=== PATIENT | female | born 1955 | race Caucasian/White ===

== ENCOUNTER → 2023-12-23 14:14 | Outpatient (REF) | payer OTHER, SELFPAY | LOC: RAD 14:14 | PROVIDERS: ATTENDING PHYSICIAN Internal Medicine | DX: R05.9 Cough, unspecified (principal) | CPT/HCPCS: 71046 ==

== ENCOUNTER 2025-03-26 05:51 | Inpatient (IN) | payer MEDICARE, OTHER, SELFPAY ==
[2025-03-26] VITALS (69 sets, daily range): BP systolic 63–149; BP diastolic 37–127; BMI 33.8; BMI 33.5
[2025-03-26 03:54] LABS: Hematocrit 46.7 % (37.0-47.0); Hemoglobin 15.4 g/dL (12.0-16.0); Mean Corp Hgb Conc. 33.0 g/dL (33.0-37.0); Mean Corpuscular Volume 90.9 fL (81.0-99.0); Nucleated Red Blood Cells % 0 %; Platelet Count 175 10^3/uL (130-400); Red Cell Dist. Width 13.4 % (11.5-14.5)
[2025-03-26 04:13] LABS: INR 1.03; PT 13.8 Sec (11.4-14.6)
--- NOTE | 2025-03-26 04:16 | ED.GENMED ---
History of Present Illness
General
Chief Complaint: Chest Pain
Source: patient
Time Seen by Provider: 03/26/25 03:39
History of Present Illness
History of Present Illness:
69-year-old female presents to the emergency room stating she is having a heart attack. Patient is complaining of chest pain. She been having pain intermittently since Friday but became severe and unrelenting during the sleeve tailor hours.
Patient is diaphoretic and appears acutely ill. Patient has a history of vascular disease and has a stent in her right carotid artery. Patient had a cardiac cath she states several years ago where she had coronary artery disease noted but did not
require stents evidently. Fortunately patient is a smoker up to 2 packs a day. She also admits to a history of chronic renal disease, hypertension, hyperlipidemia and diabetes.
Past History
Past History
ED Past Medical History: CAD, Fibromyalgia, GERD, HTN, Hypercholesterolemia, IDDM and Other (Kidney disease)
ED Past Surgical History: Cardiac and Other (carotid stent right)
Social History
Tobacco: Smoker
Alcohol: Occasional
Personal: Single
Living: alone
Phy Exam
Physical Exam
Physical Exam:
General: Awake, Alert, Oriented X3. Appears acutely ill
Vitals: Bradycardic
Head: Atraumatic
Eyes: Pupils equal, EOMI
Throat: Airway intact, no exudates
Neck: Trachea midline
Lungs: Clear and equal b/l
Heart: Bradycardic, regular rate, no murmurs
Abd: Soft, Nontender, No pulsatile mass
Neuro: Nonfocal
Skin: Pale, cool
Extremities: pulses equal b/l, no edema
Scores
Heart Score for Chest Pain Patients
STEMI patient?: Yes
Course
Orders/Labs/Results
Orders:
Orders
03/26/25 03:38
Electrocardiogram (*1) Urgent
Reason for Study: Other
Other Reason for Exam: Respiratory Distress
Cardiac Monitoring- Treatment ONCE
EKG- Treatment ONCE
IV Insert/Care/Rem.- Treatment PRN
CR Chest - 2 Views Urgent
Comment:
Reason For Exam: respiratory distress
O2 Therapy [RESP] Urgent
Titrate/Wean O2 to maintain O2 sat greater than (%): 93
Special Instructions: TO MAINTAIN CONTINUOUS O2 SATS >/= 93%
Pulse Ox/cont/shift [RESP] Urgent
Quantity: 1
Special Instructions: continuous pulse ox
03/26/25 03:47
Complete Blood Count/With Diff Urgent
Comprehensive Metabolic Panel Urgent
NT-proBNP Urgent
Troponin I Urgent
03/26/25 03:51
PT/INR [Prothrombin Time] Urgent
03/26/25 03:53
DOPamine 400 MG/D5W 250 ML [DOPamine 400 MG] 400 mg in 250 ml .ROUTE .STK-MED
03/26/25 04:02
EKG [Electrocardiogram (*1)] Urgent
Reason for Study: Chest Pain
03/26/25 04:03
EKG- Treatment ONCE
03/26/25 04:09
NORepinephrine 4 MG/250 ML [Levophed] 4 mg in 250 ml .ROUTE .STK-MED
03/26/25 04:18
Heparin 5,000 units .ROUTE .STK-MED ONE
Ticagrelor [Brilinta] 180 mg .ROUTE .STK-MED ONE
Abnormal Lab Results
03/26/25
03:47
Absolute Lymphs (auto) 3.9 H 10^3/uL
(1.2-3.4)
Absolute Monos (auto) 1.0 H 10^3/uL
(0.1-0.6)
Chloride 111 H mmol/L
(98-107)
BUN 50 H mg/dl
(7-17)
Creatinine 2.2 H mg/dL
(0.6-1.0)
03/26/25 03:47
03/26/25 03:47
Vital Signs
Initial and Last Documented VS:
Initial Vital Signs
Pulse Resp Pulse Ox
33 20 96
03/26/25 03:39 03/26/25 03:39 03/26/25 03:39
Last Documented Vital Signs
Temp Pulse Resp BP Pulse Ox
95.7 F L 39 20 87/46 93
03/26/25 03:59 03/26/25 04:16 03/26/25 04:16 03/26/25 04:10 03/26/25 04:17
MDM/Problems Addressed
Differential Diagnosis Includes:
Acute AL, heart block, unstable angina
MDM/Problems Addressed:
Patient presents with chest pain, diaphoresis, bradycardia. She looks acutely ill. EKG shows ST elevation in the inferior leads consistent with an inferior wall AL likely with posterior wall involvement. She is in a junctional rhythm. Patient
arrived with a reasonable blood pressure but her blood pressure did drop in the emergency room. Dopamine was started and titrated up to 10. A STEMI alert was called as soon as I reviewed the EKG. Dr. Benjamin Ford came rapidly to the emergency
room to evaluate the patient. Patient will be taken to the Supervisor Unloading for emergent intervention. Patient quite ill on her way to the Supervisor Unloading.
Chronic conditions affecting care: DM, HTN, PVD and Kidney disease
*Pulse Oximetry
SaO2: 92
Oxygen Mode of Delivery: Room air
Patient hypoxic: yes
*EKG
Interpreted by ED Provider?: Yes
Interpretation: abnormal
Heart Rate: 38
Rate: bradycardiac
Rhythm: junctional and PAC's
Ischemia: ST elevation (II, III aVF and some elevation noted in V5 and V6 as well. There are reciprocal changes in leads I, aVL and V2.)
*Coin Purse Assembler Interpretation
Rate: bradycardiac
Interpretation: abnormal
Heart Rate: 38
Rhythm: junctional
*Critical Care Note
Total Time (30-74mins, 75-104mins- exclusive of procedures): 45 min
comment:
Critical care statement: A total of 45 minutes of critical care time was provided for this patient. This includes management of unstable vital signs, evaluation of the patient at bedside, reviewing the patient's pertinent medical records, discussion
with consultants, review of old EKGs and review of pertinent medical records. This time with separate from time utilized to perform the aforementioned documented procedures
Data Reviewed
Review of Other/Old Records Reveals: Operative Reports (Cath report from 2010)
Patient Management
Social determinants of health affecting care: Living situation and Substance abuse (2 pack-a-day smoker)
ED Attending Note
-
Portions of this chart may have been created with voice recognition software.� Occasional wrong word or��sound alike� substitutions may have occurred due to the inherent limitations of voice recognition software.
Discharge Plan
Departure
Patient Disposition: Admit
Date of Disposition: 03/26/25
Time of Disposition: 04:17
Admit to: blood bank laboratory technician
Presentation/result/management discussed w/ accepting MD/DO: Dr. Ford
Condition: Critical
Discharge Problem:
Acute AL, inferior wall
Prescriptions:
No Action
metformin 1,000 MG tablet
1,000 mg PO BID
esomeprazole magnesium [Nexium] 40 MG capsule,delayed release(DR/EC)
40 mg PO DAILY
pravastatin [Pravachol] 20 MG tablet
20 mg PO DAILY
duloxetine [Cymbalta] 60 MG capsule,delayed release(DR/EC)
60 mg PO DAILY
naproxen sodium [Aleve] 220 MG tablet
1 tab PO PRN PRN (Reason: for pain)
Patient Comments:
patient states she uses about twice a week
amlodipine [Norvasc] 5 MG tablet
5 mg PO BID
aspirin [Aspir-Low] 81 MG tablet,delayed release (DR/EC)
81 mg PO DAILY
insulin aspart U-100 [Novolog U-100 Insulin aspart] 1,000 UNITS/10 ML solution
16 units SC .SLIDING SCALE
sulfamethoxazole-trimethoprim 1 TABLET tablet
1 tab PO BID Qty: 19 0RF
Interventions
Interventions:
*Risk Screen - Suicide Last Done: 03/26/25 03:50
*General Assessment Last Done: 03/26/25 03:48
*Neglect/Abuse Screening Last Done: 03/26/25 03:50
*ED- Fall Risk Assessment Last Done: 03/26/25 04:15
*ED COVID-19 Vaccine History Last Done: 03/26/25 03:48
*ED Influenza Vaccine History Last Done: 03/26/25 03:48
*Nursing Disposition Last Done: 03/26/25 04:15
ED- Cardiac Assessment Last Done: 03/26/25 03:50
Discharge Date and Time
Print Language: VENEZUELAN
[2025-03-26 04:18] LABS: ALT (SGPT) 14 U/L (0-35); AST (SGOT) 17 U/L (14-36); Albumin 4.0 g/dl (3.5-5.0); Alkaline Phosphatase 52 U/L (38-126); Blood Urea Nitrogen 50 mg/dl (7-17); Calcium 9.4 mg/dl (8.4-10.2); Carbon Dioxide 22 mmol/L (22-30); Chloride 111 mmol/L (98-107); Estimated Creatinine Clearance 26 ml/min; Glucose 98 mg/dl (70-99); Potassium 4.8 mmol/L (3.5-5.1); Sodium 140 mmol/L (135-145); Total Protein 6.7 g/dl (6.3-8.2); eGFR 23.38
[2025-03-26 04:31] LABS: Troponin I 0.023 ng/ml
[2025-03-26 04:46] LABS: ACT-LR - POC 237 Seconds (116-155)
[2025-03-26 05:29] LABS: ACT-LR - POC 269 Seconds (116-155)
--- NOTE | 2025-03-26 05:45 | ITS.CL.ANGIO ---
Business Intelligence Analyst - Angioplasty
Angioplasty
Procedure Report:
LEFT HEART CATHETERIZATION
Date of Procedure: March 26, 2025
Procedures performed:
1: Coronary angiography
2: Left ventriculography
3: Transvenous pacing catheter placement under fluoroscopy guidance
4: Percutaneous coronary intervention of the right coronary artery with placement of a 3.0 x 34 mm Darby drug-eluting stent
5: Right heart catheterization
Primary Care Provider: Dr. Ladonna Arias
INDICATION: The patient is a 69-year-old woman with a past medical history significant for prior carotid stenting, hypertension, hyperlipidemia, depression, ongoing heavy 2 pack a day smoking, insulin-dependent diabetes mellitus, and renal
insufficiency who presents with an evolving inferior STEMI. She has had intermittent pain for couple days which became more severe tonight. In the ER she is intermittently in a slow junctional rhythm in the 30s with hypotension requiring pressor
support. She was given aspirin, a loading dose of ticagrelor, and unfractionated heparin in the ER. On the way to the Business Intelligence Analyst and in the Business Intelligence Analyst she vomited large amounts several times.
ACCESS: The patient was prepped and draped in usual sterile fashion. A 6 Serbian sheath was placed in the right common femoral artery using the Seldinger over the wire technique. A 6 Serbian sheath was then placed in the right common femoral vein
using the same technique. Ultrasound guidance with a micropuncture technique was used.
Placement of transvenous pacer under fluoroscopic guidance: In light of the patient's ongoing hypotension and bradycardia, I elected to place a 6 Serbian transvenous pacer via the right common femoral venous 6 Serbian sheath. This was done with
ultrasound guidance. The tip was placed in the RV apex towards the septum using COYLE and RONALD projections. The patient was set to pace at 90 bpm. This stabilized her rhythm and we then proceeded with the case.
HEMODYNAMIC FINDINGS (mmHg):
LV(s/d,EDP): 107/16, 20
Ao(s/d,m): 107/61, 80
ANGIOGRAPHIC FINDINGS:
Single-plane Left Ventriculography in COYLE Projection: Hyperdynamic anterior wall. Moderate inferobasilar and severe diaphragmatic hypokinesis. Overall preserved LV systolic function with a visually estimated ejection fraction of 55 to 60%. No
significant mitral regurgitation.
Coronary Angiography:
Dominance: Right
Left Main: Small caliber with mild distal tapering.
Left Anterior Descending: The LAD is small caliber vessel that has trivial luminal irregularities. There is mid myocardial bridging noted. The LAD gives rise to 1 major small diagonal branch that has moderate nonobstructive disease. Normal flow
in all distal vessels.
Left Circumflex: The circumflex is a small caliber nondominant system that gives rise to a small OM1 and terminates in a larger distal OM 2. These vessels have diffuse moderate luminal irregularities but appear free of focal obstructive disease.
There is at worst a 60 to 70% stenosis in the midportion of the second obtuse marginal branch.
Right Coronary: The right coronary artery is a medium caliber dominant vessel that is occluded in the midportion. No evidence of distal collaterals.
Percutaneous Coronary Intervention (PCI): In light of the above angiographic findings and the patient's clinical presentation, I elected to perform a PCI of the culprit right coronary artery. A 6 Serbian JR4 guiding catheter was used to engage and
image. Unfractionated heparin was given. A Hi-Torque floppy wire was easily advanced across the occlusion into the distal vessel. A double bolus of Integrilin was reluctantly given as I wanted her to have antiplatelet activity on board given the
fact that she had not been able to keep the ticagrelor down. Predilation was performed with a 2.0 x 20 mm balloon which restored antegrade flow. Next a 3.0 x 34 mm Darby stent was deployed at 18 lizabeth for 30 seconds. Follow-up angiography revealed
an outstanding angiographic result. At this point we tried to drop the pacer rate and the patient ultimately went into atrial fibrillation with a rapid ventricular response. Amiodarone bolus was given as the rate was high. Ultimately I decided to
remove the transvenous pacer and perform a right heart cath to get objective measurement of right sided filling pressures and cardiac output. Given the fact that the patient threw up all her gastric contents, I elected to reload with clopidogrel
600 mg p.o. at the end of the procedure.
FINAL RESULT: 0% in-stent residual stenosis with an outstanding angiographic result and JENIFER-3 flow in all distal vessels
Other procedures:
1. In light of her ongoing hypotension requiring Levophed, I elected to perform a right heart catheterization with a 6 Serbian balloon tipped catheter.
HEMODYNAMIC FINDINGS (mmHg):
RA(a,v,m): , 18, 15 patient in atrial fibrillation
RV(s/d,EDP): 54/11, 18
PA(s/d/m): 53/25, 32
PCWP(a,v,m): , 32, 23
Oxygen Saturations (mg/dl):
PA: 65% on 4 L of oxygen by nasal cannula
LV: 87% on 4 L of oxygen by nasal cannula
Cardiac Output/Index (l/min / l/min/m2):
Estimated Mauricio Method: 4.2 / 2.1
Fluoroscopy Time (min): 9.5
Radiation Dose (mGy): 551
DAP (Gy.cm2): 41
Closure device: None. The 6 Serbian arterial and venous sheath was sutured in place. Angiography through the 6 Serbian arterial sheath showed the stick site to be in the distal common femoral artery just above the bifurcation. The superficial
femoral artery (SFA) is proximally totally occluded. There is brisk flow around the sheath into the profunda.
Complications: None.
ASSESSMENT:
1: Successful PCI of the right coronary artery with placement of a drug-eluting stent as described above.
2: Residual nonobstructive disease in the left circulation with preserved LV systolic function no significant mitral regurgitation.
3: Mildly elevated LVEDP and wedge. Her creatinine came back at 2.2 during the intervention. She is clearly at risk for renal complications. Will hold off on IV fluids at this time.
CONCLUSIONS and RECOMMENDATIONS:
1: Routine post STEMI and post drug-eluting stent medical therapy and monitoring in the CVICU.
2: Will plan to pull 6 Serbian arterial sheath once ACT is under 200 seconds.
3: Will plan to trend cardiac enzymes and get echo in the morning.
4: Consult nephrology. She sees Dr. Jo as an outpatient.
Joseph Ford M.D.
[2025-03-26 05:47] LABS: ACT-LR - POC 250 Seconds (116-155)
[2025-03-26 06:44] LABS: Troponin I 1.870 ng/ml
[2025-03-26 06:49] LABS: ACT-LR - POC 227 Seconds (116-155)
[2025-03-26 07:11] LABS: Magnesium 2.1 mg/dl (1.6-2.3)
--- NOTE | 2025-03-26 07:45 | PTCARENOTE ---
Patient arrived on unit approx 0600. Patient oriented to room, informed of plan of care, assessed. Episode of emesis with brown gastric content. Reglan ordered. Patient initially in afib rhythm upon arrival to unit quickly converted to junctional
bradycardia HR 30s-40s. Dopamine started at 7.5. Increased to [address] PA. Levo increased from 7.[address] PA[address] Levo turned off when patient briefly entered SR with higher BP per . Unable to obtain temperature from patient visibly
shivered cold to touch started on an roa. Labs obtained.
[2025-03-26 07:49] LABS: ACT-LR - POC 168 Seconds (116-155)
[2025-03-26] MEDS: REGLAN 10 MG IV (08:01)
[2025-03-26] MEDS: DILAUDID 0.5 MG IV (08:38)
[2025-03-26] MEDS: HEPARIN 5000 UNITS SC ×3 (08:41→23:23)
--- NOTE | 2025-03-26 09:04 | PTCARENOTE ---
Pt received in bed @ 0700. Pt oriented. Denying pain. SaO2 92% on 6L NC. Originally unable to obtain oral temp. Warm blankets provided and pts temperature returned 97.1F oral. Diminished breath sounds, wheeze auscultated throughout. HR 40s - 50s on
youth nutritional monitor. Irregular rhythm. Levophed gtt and Dopamine gtt infusing. No edema observed. Pedal pulses present with Doppler. Right femoral sheath present; transduced, zeroed, and flushed. Cuff pressure within 10mmHg pressure of Art line
measurement. Right femoral sheath removed by Dr. Ford at bedside after ACT < 200. Pressured applied for 20 minutes. Small hematoma on follow up assessment. Dr. Ford informed, who instructed to apply pressure. Hematoma no longer observed. RLE
pink, warm, pulses present with Doppler. Pt with episode of coffee ground emesis with. Instructed by Dr. Ford to heme test the emesis; resulted positive. Order for NG tube to LIWS placed, but told to hold off by Dr. Ford.
[2025-03-26] MEDS: NSS (PRESERVATIVE FREE) 20 ML IV (09:38)
[2025-03-26] MEDS: PROTONIX IV 80 MG IV (09:39)
[2025-03-26] MEDS: NICODERM TRANSDERMAL 21 MG TRANSDERM (09:47)
--- NOTE | 2025-03-26 09:50 | CON.INTV ---
Consultation
Consultation Request
Date/Time Consultation Requested: 03/26/2025
Date/Time Consultation Performed: 03/26/2025
Medical History
-
Chief Complaint: Chest pain
History of Present Illness:
Patient is a 69-year-old female with longstanding history of hypertension, diabetes, hyperlipidemia and smoking who presented to the hospital with nausea and chest discomfort. Patient was suspected to have ST elevation SD and was emergently taken
to Staff Midwife. She had a drug-eluting stent placed in the RCA. She had multiple episodes of vomiting. She also was noted to be hypoxic and required supplemental oxygen. Right heart cath showed elevated filling pressures in the Staff Midwife. In the
CVICU patient had additional episode of vomiting which showed small amount of bright red blood and also coffee-ground emesis. Patient was started on Protonix drip. She has stayed hypotensive postprocedure and continues to need Levophed and
norepinephrine infusion. In view of persistent shock and now concern for GI bleed, cableman consultation was requested for further input.
Past medical history. Hypertension, hyperlipidemia, diabetes, chronic gastroesophageal reflux disease, chronic kidney disease, longstanding history of smoking.
Past surgical history. History of carotid artery disease status post stent placement
Social history. Patient has about [id number] smoking history.
Allergies / Home Medications
Allergies
Allergy/AdvReac Type Severity Reaction Status Date / Time
bupropion HCl (From Allergy Intermediate Rash Verified 03/06/20 18:52
Wellbutrin)
Penicillins Allergy Intermediate Hives Verified 03/06/20 18:52
bupropion Allergy Unknown Verified 03/06/20 18:52
cefixime Allergy Unknown Verified 03/06/20 18:52
Cephalosporins Allergy Hives Verified 03/06/20 18:52
Home Medications
�Medication �Instructions �Recorded �Confirmed �Last Taken �Type
duloxetine 60 mg capsule,delayed 60 mg PO DAILY 05/09/11 10/15/19 10/15/19 History
release (Cymbalta)
esomeprazole magnesium 40 mg 40 mg PO DAILY 05/09/11 10/15/19 10/15/19 History
capsule,delayed release (Nexium)
metformin 1,000 mg tablet 1,000 mg PO BID 05/09/11 10/15/19 10/15/19 History
pravastatin 20 mg tablet 20 mg PO DAILY 05/09/11 10/15/19 10/14/19 History
(Pravachol)
naproxen sodium 220 mg tablet 1 tab PO PRN PRN for pain 05/10/11 10/15/19 Unknown History
(Aleve)
amlodipine 5 mg tablet (Norvasc) 5 mg PO BID 10/08/19 10/15/19 10/15/19 History
aspirin 81 mg tablet,delayed 81 mg PO DAILY 10/08/19 10/15/19 10/14/19 History
release (Aspir-Low)
insulin aspart U-100 100 unit/mL 16 units SC .SLIDING SCALE 10/08/19 10/15/19 10/14/19 History
subcutaneous solution (Novolog
U-100 Insulin aspart)
sulfamethoxazole 800 1 tab PO BID Skin issues #19 tabs 03/06/20 Unknown Rx
mg-trimethoprim 160 mg tablet
Review of Systems
-
Hematologic/Lymphatic: Other (All 14 systems reviewed and negative except as stated above in the history of present illness.)
Vitals / Labs / Diagnostic Testing
Vital Signs
Temp Pulse Resp BP Pulse Ox
95.7 F L 52 20 94/42 91
03/26/25 03:59 03/26/25 07:00 03/26/25 07:00 03/26/25 06:48 03/26/25 07:06
Lab Data
03/26/25 03:47
Laboratory Results
03/26/25
03:51
PT 13.8
INR 1.03
Diagnostic Testing:
Physical Exam
-
HEENT: Normocephalic
Cardiovascular: S1/S2
Respiratory: Rales
GI: Soft and Non Distended
Neurology: Awake and Alert
Skin: Warm
General: Comfortable
Assessment
-
#1. Acute hypoxic respiratory failure.
- Patient currently requiring 6 L supplemental oxygen and saturating around 96%. Does not report any cough
- Stat chest x-ray reviewed, suggestive of pulmonary vascular congestion. Check arterial blood gas and lactate. With longstanding history of smoking, patient likely has underlying emphysema to contributing to hypoxia.
- Echocardiogram pending. Suspect pulmonary edema in the setting of cardiogenic shock and acute SD contributing to hypoxic respiratory failure
- Patient currently requiring Levophed and dopamine. Discussed with cardiology service, okay to give Lasix. Will give 40 mg IV x 1 and monitor
- If work of breathing increases, will need BiPAP support
- Follow-up chest x-ray in a.m.
- Wean O2 as tolerated
- Patient had pulmonary capillary wedge pressure of 23 and mean PA pressure of 32 during RAP heart catheterization.
- Aspiration also a concern however has normal WBC count and afebrile. No purulent expectoration. Monitor off antibiotics for now
#2. Shock, suspect cardiogenic
- Patient currently hypotensive, MAP of 56, Levophed and dobutamine infusing at 4
- Cardiology service at bedside
- Echocardiogram pending.
- Chest x-ray suggestive of pulmonary congestion, will hold off fluid boluses for now
- Titrate pressors to MAP of 65
- Check lactate level stat, check arterial blood gas
#3. Acute STEMI, inferior wall
- Status postcardiac catheterization on 03/26, PCI of right coronary artery performed with drug-eluting stent
- LV function appeared preserved without any significant mitral regurgitation. Mean pulmonary artery pressure 32 with a pulmonary capillary wedge of 23
- Currently on aspirin, Plavix, pressor support, statins.
#4. Recurrent nausea vomiting with concern for upper GI bleed
- Patient has had multiple episodes of nausea and vomiting, most recently had coffee-ground emesis with small amount of blood noted per nursing staff
- Longstanding history of gastroesophageal reflux disease and chronic aspirin therapy, on Nexium at home
- No prior history of peptic ulcer disease. Yee-Nguyen tear and concern considering recurrent episodes of vomiting
- 80 mg IV push Protonix followed by infusion. Serial H&H every 6 hours
- Recommend GI consult
- Abdominal exam is benign. Etiology of vomiting likely related to inferior wall SD
- LFTs are unremarkable, check lipase level. If symptoms persist will proceed with abdominal x-ray and right upper quadrant ultrasound
- As needed Zofran. Patient comfortable during my evaluation and denied nausea after having received medication
Other medical diagnoses:
- DM. Hold off metformin. Initiate sliding scale insulin.
- Chronic kidney disease. Patient at risk of contrast nephropathy with recent left heart catheterization. Also current shock and need for pressors increased risk of PETER. Nephrology service has been consulted.
- Hypertension. Patient on amlodipine at home. Currently hypotensive and requiring pressors. Hold off any antihypertensives
- Hyperlipidemia. Continue statins
- History of smoking. Patient smokes about 2 packs a day, smoking for the last 50 years. Close [id number] smoking history. No known history of wheezing, asthma or emphysema. Patient might have underlying emphysema contributing to hypoxia.
Needs outpatient pulmonary function testing including DLCO assessment and 6-minute walk test. Patient also qualifies for lung cancer screening with a yearly low-dose CT scan. Outpatient follow-up information added to discharge section
Critical Care time 65 mins -- The patient is admitted for acute critical illness for the treatment of vital organ failure and/or prevention of further life-threatening conditions. Total care includes time spent in review of history, physical exam,
medications, hemodynamic/ventilator parameters, laboratory data, imaging and discussion with house staff, pharmacy, respiratory therapy, case management manager, and nursing.
Data:
[facility] 03/2025: 1: Successful PCI of the right coronary artery with placement of a drug-eluting stent as described above.
2: Residual nonobstructive disease in the left circulation with preserved LV systolic function no significant mitral regurgitation.
3: Mildly elevated LVEDP and wedge. Her creatinine came back at 2.2 during the intervention. She is clearly at risk for renal complications. Will hold off on IV fluids at this time.
[2025-03-26] MEDS: PROTONIX 100 IV ×2 (10:20→18:17)
--- NOTE | 2025-03-26 10:24 | W.PN.CARD.SR ---
Sheath/IABP Sheath Removal
Sheath Removal
Right Arterial Femoral:
Site appearance prior to sheath removal: Intact
Size of hematoma in cm: 0
Sheath removed by:: Physician
Name of associate removing sheath: Dr. Ford and Araceli Narvaze PA-C
Time of sheath removal: 08:05
Time hemostasis achieved: 08:25
Site appearance post sheath removal: Intact
Size of hematoma in cm: 0
Method of Hemostasis Post Sheath Removal: Manual Pressure
Dressing dry and intact?: Yes
Comments: R groin is soft, cdi, no hematoma. R PT is Dopplerable
[2025-03-26] MEDS: LASIX 40 MG IV (10:44)
[2025-03-26 11:00] LABS: B.E. -5.7 mmol/L; HCO3 21.1 mmol/L (21-28); O2 Saturation % 93.4 % (94-98); PCO2 45 mmHg (32-35); PO2 66 mmHg (83-108)
--- NOTE | 2025-03-26 11:01 | W.CON.NEPH ---
Consultation
-
Date/Time Consultation Requested: 03/26/25 0558
Date/Time Consultation Performed: 03/26/25 1040
Requesting Provider: Dr Ford
Performing Provider: Darby Nation
Reason for Consultation: CKD
Medical History
-
Chief Complaint: CP
History of Present Illness:
69-year-old female with longstanding history of hypertension on Amlodipine, Candesartan, metoprolol, CKD 4 baseline cr [address] Jo, diabetes on insulin, hyperlipidemia on statin and chronic smoking who presented to the hospital this morning
with nausea and chest discomfort, reportedly symp were present for few day but became worse on admit. Patient STEMI with symp bradycardia and sinus arrest with junctional escape required temp pacer and was emergently taken to Service Operations Manager. She had a
drug-eluting stent placed in the RCA. She had multiple episodes of vomiting. She also was noted to be hypoxic and required supplemental oxygen. Right heart cath showed elevated filling pressures PCWP mean 23 in the Service Operations Manager. She is seen in
CVICU, reportedly patient had episode of vomiting which showed small amount of bright red blood and also coffee-ground emesis and she was started on Protonix drip. She was hypotensive postprocedure and required brief Dobutamine, now remains on
Levophed infusion. Her cr on admit noted at 2.2 nephrology consulted specially with CKD and post contrast.
Past Medical History
Hypertension, hyperlipidemia, diabetes, chronic gastroesophageal reflux disease, chronic kidney disease, longstanding history of smoking.
COPD, Spinal stenosis, right carotid art disease,
Past Surgical History: Other (History of carotid artery disease status post stent placement, carpal tunnel release, right CEA)
Social History
Tobacco: Smoker (100 pack year)
Alcohol: None
Drug: None
Personal: Single
Family History
father AL at age of 54
Family History: Not Pertinent
Allergies / Home Medications
Allergy/AdvReac Type Severity Reaction Status Date / Time
bupropion HCl (From Allergy Intermediate Rash Verified 03/06/20 18:52
Wellbutrin)
Penicillins Allergy Intermediate Hives Verified 03/06/20 18:52
bupropion Allergy Unknown Verified 03/06/20 18:52
cefixime Allergy Unknown Verified 03/06/20 18:52
Cephalosporins Allergy Hives Verified 03/06/20 18:52
�Medication �Instructions �Recorded �Confirmed �Type
duloxetine 60 mg capsule,delayed 60 mg PO DAILY 05/09/11 10/15/19 History
release (Cymbalta)
esomeprazole magnesium 40 mg 40 mg PO DAILY 05/09/11 10/15/19 History
capsule,delayed release (Nexium)
metformin 1,000 mg tablet 1,000 mg PO BID 05/09/11 10/15/19 History
pravastatin 20 mg tablet 20 mg PO DAILY 05/09/11 10/15/19 History
(Pravachol)
naproxen sodium 220 mg tablet 1 tab PO PRN PRN for pain 05/10/11 10/15/19 History
(Aleve)
amlodipine 5 mg tablet (Norvasc) 5 mg PO BID 10/08/19 10/15/19 History
aspirin 81 mg tablet,delayed 81 mg PO DAILY 10/08/19 10/15/19 History
release (Aspir-Low)
insulin aspart U-100 100 unit/mL 16 units SC .SLIDING SCALE 10/08/19 10/15/19 History
subcutaneous solution (Novolog
U-100 Insulin aspart)
sulfamethoxazole 800 1 tab PO BID Skin issues #19 tabs 03/06/20 Rx
mg-trimethoprim 160 mg tablet
Review of Systems
-
All other systems: Negative unless noted
Physical Exam
Vital Signs
Vital Signs
Temp Pulse Resp BP Pulse Ox
95.7 F L 50 18 120/57 93
03/26/25 03:59 03/26/25 10:00 03/26/25 10:00 03/26/25 10:00 03/26/25 10:16
Lab Results
Sodium 140 mmol/L (135-145) 03/26/25 03:47
Potassium 4.8 mmol/L (3.5-5.1) 03/26/25 03:47
Chloride 111 mmol/L (98-107) H 03/26/25 03:47
Carbon Dioxide 22 mmol/L (22-30) 03/26/25 03:47
BUN 50 mg/dl (7-17) H 03/26/25 03:47
Creatinine 2.2 mg/dL (0.6-1.0) H 03/26/25 03:47
eGFR 23.38 03/26/25 03:47
Glucose 98 mg/dl (70-99) 03/26/25 03:47
Calcium 9.4 mg/dl (8.4-10.2) 03/26/25 03:47
Ggb-M-Zengezbiwsm Pept 555 pg/ml 03/26/25 03:47
Albumin 4.0 g/dl (3.5-5.0) 03/26/25 03:47
Physical Exam
General: Awake, Alert, Oriented, AOx3 and No Distress
HEENT: EOMI, Anicteric, Conjunctivae Clear and Facial Symmetry
Respiratory: Crackels, Normal Excursion and Nonlabored Respirations
Cardiac: S1/S2 and Regular Rate/Rhythm
Breast: Deferred by me
Abdomen: Soft, Nontender and Nondistended
Musculoskeletal: Edema
Skin: No Rash
Neuro: Nonfocal/Grossly Intact
Psych: Insight/judgement good and Appropriate
Data Reviewed
-
Labs: Labs Reviewed by me, Discussed with Nurse and Discussed with Patient
Assessment/Plan
-
IMP:
Acute hypoxic respiratory failure.
Shock, suspect cardiogenic
Acute STEMI, inferior wall s/p RCA PCI 03/26
Recurrent nausea vomiting with concern for upper GI bleed
CKD4-baseline cr 2.2
IDDM
Hypertension
Hyperlipidemia
History of smoking.
h/o GERD
COPD
Spinal stenosis
Fibromyalgia
Plan:
A/w STEMI s/p RCA PCI
CKD-cr stable at baseline however monitor closely with contrast exposure today
cardiogenic shock-cotn levo to keep MAP>65
monitor h/h for GIB
CHF-cont lasix, extra dose if needed
wean O2 as able
med list is not accurate -needs to be updated
hold ARB and avoid nephrotoxins
follow labs
d/w pt and nursing
[2025-03-26 11:04] LABS: O2 Therapy O2
[2025-03-26 11:07] LABS: Hematocrit 41.8 % (37.0-47.0); Hemoglobin 13.9 g/dL (12.0-16.0); Mean Corp Hgb Conc. 33.3 g/dL (33.0-37.0); Mean Corpuscular Volume 93.7 fL (81.0-99.0); Platelet Count 167 10^3/uL (130-400); Red Cell Dist. Width 13.3 % (11.5-14.5)
--- NOTE | 2025-03-26 11:18 | PTCARENOTE ---
Pt reassessed. Orders clarified with Dr. Ford. Discontinue Dopamine gtt. Ordered to titrate Levophed for MAP > 60; Levophed gtt infusing @ 6 mcg/min. Pt with complaint of neck pain. Order for Dilaudid 0.5mg IV x1 now acknowledged and administered.
SaO2 to 83% on 6L NC, while asleep. Simple mask 6L applied and SaO2 observed 90 - 97%. 6L NC reapplied as pt awoke; SaO2 observed 93 - 98%. Lasix 40mg IV administered. No void yet observed. Pt denying nausea. No further emesis observed. Protonix gtt
infusing.
[2025-03-26 11:22] LABS: Lipase 161 U/L (23-300)
[2025-03-26 11:34] LABS: Glucose - Point of Care 252 mg/dl (70-99)
[2025-03-26 11:35] LABS: Troponin I 23.500 ng/ml
[2025-03-26] MEDS: LOW STRENGTH ASPIRIN 81 MG PO (11:36)
[2025-03-26] MEDS: CYMBALTA DELAYED RELEASE 60 MG PO (11:36)
[2025-03-26] MEDS: NOVOLOG FLEXPEN-LOW RESISTANCE 3 UNITS SC (12:17)
--- NOTE | 2025-03-26 13:41 | CON.GI ---
Consultation
-
Date/Time Consultation Requested: 03/26/2025, 10:30am
Date/Time Consultation Performed: 03/26/2025, 2pm
Requesting Provider: Isaac Tracy APN
Performing Provider: Dr. Moyer
Reason for Consultation: coffee ground emesis
Medical History
Chief Complaint / HPI
Chief Complaint: chest pain
History of Present Illness:
Patient was admitted today with chest pain, diaphoretic, appeared acutely ill on arrival to the emergency room found to have inferior wall myocardial infarction with likely with posterior wall involvement. STEMI alert was called patient taken to
the Flaking Roll Operator today. Stent was placed. According to the catheterization note, patient was vomiting on the way to the Flaking Roll Operator and in the Flaking Roll Operator large amounts several times (bilious non bloody). She had an episode of vomiting and in the CVICU
which showed a small amount of bright red blood and coffee-ground emesis. She was hypotensive postprocedure requiring Levophed and norepinephrine.
Cscope Dr. Walker 2020 multiple polyps (TAs, TVA; polyps >1cm), tics, hemorrhoids
EGD Dr. Walker 2020 for heartburn irregular Z line, gastritis, normal duodenum; questionable Suarez's on EGD
Past Medical History
Past Medical History: CAD, Fibromyalgia, GERD, HTN, Hypercholesterolemia, IDDM and Other (kidney dz)
Past Surgical History: Cardiac (stent)
Social History
Tobacco: Smoker (100 pack year )
Alcohol: Occasional
Family History
Family History: Reviewed & Not Pertinent
Allergies / Home Medications
Allergy/AdvReac Type Severity Reaction Status Date / Time
bupropion HCl (From Allergy Intermediate Rash Verified 03/06/20 18:52
Wellbutrin)
Penicillins Allergy Intermediate Hives Verified 03/06/20 18:52
bupropion Allergy Unknown Verified 03/06/20 18:52
cefixime Allergy Unknown Verified 03/06/20 18:52
Cephalosporins Allergy Hives Verified 03/06/20 18:52
�Medication �Instructions �Recorded
duloxetine 60 mg capsule,delayed 60 mg PO DAILY 05/09/11
release (Cymbalta)
esomeprazole magnesium 40 mg 40 mg PO DAILY 05/09/11
capsule,delayed release (Nexium)
metformin 1,000 mg tablet 1,000 mg PO BID 05/09/11
pravastatin 20 mg tablet 20 mg PO DAILY 05/09/11
(Pravachol)
naproxen sodium 220 mg tablet 1 tab PO PRN PRN for pain 05/10/11
(Aleve)
amlodipine 5 mg tablet (Norvasc) 5 mg PO BID 10/08/19
aspirin 81 mg tablet,delayed 81 mg PO DAILY 10/08/19
release (Aspir-Low)
insulin aspart U-100 100 unit/mL 16 units SC .SLIDING SCALE 10/08/19
subcutaneous solution (Novolog
U-100 Insulin aspart)
sulfamethoxazole 800 1 tab PO BID Skin issues #19 tabs 03/06/20
mg-trimethoprim 160 mg tablet
Review of Systems
-
All other systems: A 12 pt ROS was Negative except as stated above in HPI
Vital Signs
Temp Pulse Resp BP Pulse Ox
97.9 F 53 15 122/63 99
03/26/25 11:02 03/26/25 11:45 03/26/25 11:45 03/26/25 11:45 03/26/25 11:45
Physical Exam
Exam
General: Well Developed
HEENT: Normocephalic
Respiratory: Clear
Cardiac: S1/S2
GI: Non Tender and Non Distended
Musculoskeletal: No Clubbing
Skin: Warm
Neuro: AO x 3
Results
WBC 13.7 10^3/uL (4.8-10.8) H 03/26/25 10:58
Hgb 13.9 g/dL (12.0-16.0) 03/26/25 10:58
Hct 41.8 % (37.0-47.0) 03/26/25 10:58
MCV 93.7 fL (81.0-99.0) 03/26/25 10:58
Plt Count 167 10^3/uL (130-400) 03/26/25 10:58
Absolute Neuts (auto) 5.5 10^3/uL (1.4-6.5) 03/26/25 03:47
PT 13.8 Sec (11.4-14.6) 03/26/25 03:51
INR 1.03 03/26/25 03:51
Sodium 140 mmol/L (135-145) 03/26/25 03:47
Potassium 4.8 mmol/L (3.5-5.1) 03/26/25 03:47
Chloride 111 mmol/L (98-107) H 03/26/25 03:47
Carbon Dioxide 22 mmol/L (22-30) 03/26/25 03:47
BUN 50 mg/dl (7-17) H 03/26/25 03:47
Creatinine 2.2 mg/dL (0.6-1.0) H 03/26/25 03:47
Calcium 9.4 mg/dl (8.4-10.2) 03/26/25 03:47
Total Bilirubin 0.6 mg/dl (0.2-1.3) 03/26/25 03:47
AST 17 U/L (14-36) 03/26/25 03:47
ALT 14 U/L (0-35) 03/26/25 03:47
Alkaline Phosphatase 52 U/L (38-126) 03/26/25 03:47
Lipase 161 U/L (23-300) 03/26/25 10:58
Diagnostic Image Results:
Prior GI Procedures:
EGD:
Colonoscopy:
Assessment / Plan
-
69 yo F here with STEMI found to be vomiting pre-cath and post-cath some coffee ground emesis with blood streaks.
Suspect Yee Nguyen tear.
Stable Hb.
Recommend PPI gtt, zofran prn, NPO.
If nausea improves by am can advance to clear liquids.
No plan for endoscopic intervention given STEMI/cath today.
OK to continue any blood thinners as needed given STEMI.
Patient overdue for cscope this will need to be arranged 6 months post-cath. I sent office message to put her in for recall then.
-
-
Thank you for consultation and allowing me to participate in the patient's care. Please call the neonatal surgeon GI physician during the after hours with any questions or concerns.
--- NOTE | 2025-03-26 16:40 | PTCARENOTE ---
Pt reassessed. Pt weaned to room air; SaO2 97%. Sinus bret/Sinus rhythm on heel builder machine with HR 50s - 60s. Levophed gtt weaned to off. MAP remains > 60 without pressors. Pt without observed void. Bladder scanned for 1092ml. Pt then incontinent
for large amount of urine. 800ml urine in purewick catheter. G cloth bath provided and linens changed.
[2025-03-26] MEDS: CRESTOR 40 MG PO (16:52)
[2025-03-26 18:11] LABS: Glucose - Point of Care 143 mg/dl (70-99)
[2025-03-26] MEDS: NOVOLOG FLEXPEN-LOW RESISTANCE SC (18:17)
[2025-03-26 18:52] LABS: Hematocrit 40.9 % (37.0-47.0); Hemoglobin 13.7 g/dL (12.0-16.0); Mean Corp Hgb Conc. 33.5 g/dL (33.0-37.0); Mean Corpuscular Volume 92.7 fL (81.0-99.0); Platelet Count 144 10^3/uL (130-400); Red Cell Dist. Width 13.2 % (11.5-14.5)
[2025-03-26 19:45] LABS: Troponin I 57.400 ng/ml
--- NOTE | 2025-03-26 21:06 | PTCARENOTE ---
Pt is Aox3, VSS, SB on monitor, denies SOB/CP. Pt remains less than 30 degrees with right venous sheath intact, KVO infusing thru sheath. Right dorsal and tibial pulses audible with doppler.
--- NOTE | 2025-03-26 21:54 | PTCARENOTE ---
Marco A Hill removed right venous sheath.
[2025-03-26 22:54] LABS: Glucose - Point of Care 113 mg/dl (70-99)
[2025-03-26] MEDS: TYLENOL 650 MG PO (23:23)
[2025-03-27] VITALS (29 sets, daily range): BP systolic 74–141; BP diastolic 34–65; BMI 33.0
[2025-03-27] MEDS: PROTONIX 100 IV (03:20)
[2025-03-27 04:56] LABS: Hematocrit 42.3 % (37.0-47.0); Hemoglobin 14.0 g/dL (12.0-16.0); Mean Corp Hgb Conc. 33.1 g/dL (33.0-37.0); Mean Corpuscular Volume 92.0 fL (81.0-99.0); Platelet Count 134 10^3/uL (130-400); Red Cell Dist. Width 13.5 % (11.5-14.5)
--- NOTE | 2025-03-27 05:13 | PTCARENOTE ---
Pt assessment unchanged, NSR on monitor, VSS, c/o pain in lower back that is chronic, PRN Tylenol given with relief. Remains NPO, on a Protonix gtt. Venous sheath removed last night. Site it soft with some ecchymotic tissue. Pulses are audible with
doppler.
[2025-03-27 05:17] LABS: Blood Urea Nitrogen 50 mg/dl (7-17); Calcium 9.1 mg/dl (8.4-10.2); Carbon Dioxide 22 mmol/L (22-30); Chloride 112 mmol/L (98-107); Estimated Creatinine Clearance 23 ml/min; Glucose 111 mg/dl (70-99); Potassium 4.7 mmol/L (3.5-5.1); Sodium 140 mmol/L (135-145); eGFR 20.06
[2025-03-27 05:58] LABS: Glucose - Point of Care 119 mg/dl (70-99)
[2025-03-27] MEDS: NOVOLOG FLEXPEN-LOW RESISTANCE SC ×2 (06:02→14:18)
--- NOTE | 2025-03-27 09:22 | W.PN.INTV ---
Today's Communication / Plan
Recommendations
- Switch to PO Protonix, BID
- Out patient follow up with [facility] Pulmonary clinic. Information added to d/c section
- Patient tranferring to IVU, Industrial Real Estate Agent service will sign off. Call as needed.
Assessment
-
Patient is a 69-year-old female with longstanding history of hypertension, diabetes, hyperlipidemia and smoking who presented to the hospital with nausea and chest discomfort. Patient was suspected to have ST elevation OH and was emergently taken
to Horticultural Therapist. She had a drug-eluting stent placed in the RCA. She had multiple episodes of vomiting. She also was noted to be hypoxic and required supplemental oxygen. Right heart cath showed elevated filling pressures in the Horticultural Therapist. In the
CVICU patient had additional episode of vomiting which showed small amount of bright red blood and also coffee-ground emesis. Patient was started on Protonix drip. She has stayed hypotensive postprocedure and continues to need Levophed and
norepinephrine infusion. In view of persistent shock and now concern for GI bleed, paper steamer consultation was requested for further input.
#1. Acute hypoxic respiratory failure.
- Clinically quite improved
- Down to 2 ltr O2 (from 6 htr.)
- CXR was suggestive of Pulm edema, significantly improved post diuresis (03/27)
- Echocardiogram pending. Suspect pulmonary edema in the setting of cardiogenic shock and acute OH contributing to hypoxic respiratory failure
- Off pressors now.
- Wean O2 as tolerated
- Patient had pulmonary capillary wedge pressure of 23 and mean PA pressure of 32 during RAP heart catheterization.
- With long standing heavy smoking history, might have underlying Emphysema contributing to hypoxia as well. Recommend out patient PFTs and 6 min walk test.
#2. Shock, suspect cardiogenic
- Resolved, off pressors now.
- Cardiology service on case.
- Echocardiogram pending. Lactate normal
- Chest x-ray with improved pulmonary edema
#3. Acute STEMI, inferior wall
- Status postcardiac catheterization on 03/26, PCI of right coronary artery performed with drug-eluting stent
- LV function appeared preserved without any significant mitral regurgitation. Mean pulmonary artery pressure 32 with a pulmonary capillary wedge of 23
- Currently on aspirin, Plavix, and statins.
#4. Recurrent nausea vomiting with concern for upper GI bleed
- Suspected Yee Nguyen
- No further episodes
- GI service on case. Hb stable.
- d/c PPI infusion and switch to PO
Other medical diagnoses:
- DM. Hold off metformin. Initiated sliding scale insulin.
- Chronic kidney disease. Patient at risk of contrast nephropathy with recent left heart catheterization. Also current shock and need for pressors increased risk of PETER. Nephrology service has been consulted.
- Hypertension. Patient on amlodipine at home. Off pressors now
- Hyperlipidemia. Continue statins
- History of smoking. Patient smokes about 2 packs a day, smoking for the last 50 years. Close [id number] smoking history. No known history of wheezing, asthma or emphysema. Patient might have underlying emphysema contributing to hypoxia.
Needs outpatient pulmonary function testing including DLCO assessment and 6-minute walk test. Patient also qualifies for lung cancer screening with a yearly low-dose CT scan. Outpatient follow-up information added to discharge section
Critical Care time 45 mins -- The patient is admitted for acute critical illness for the treatment of vital organ failure and/or prevention of further life-threatening conditions. Total care includes time spent in review of history, physical exam,
medications, hemodynamic/ventilator parameters, laboratory data, imaging and discussion with house staff, pharmacy, respiratory therapy, open hearth worker, and nursing.
Data:
[facility] 03/2025: 1: Successful PCI of the right coronary artery with placement of a drug-eluting stent as described above.
2: Residual nonobstructive disease in the left circulation with preserved LV systolic function no significant mitral regurgitation.
3: Mildly elevated LVEDP and wedge. Her creatinine came back at 2.2 during the intervention. She is clearly at risk for renal complications. Will hold off on IV fluids at this time.
Subjective Dataa
Subjective Data
Date of Service:
Date of Service: March 27, 2025
Subjective:
Patient comfortably lying in bed in no acute distress.
Review of Systems
Genitourinary: Other (All 14 systems reviewed and negative except as stated above in the history of present illness.)
Objective Data
Data Reviewed
Vital Signs / I&O / Oxygen:
Vital Signs
Temp Pulse Resp BP Pulse Ox
98.0 F 57 22 120/58 95
03/27/25 00:08 03/27/25 05:45 03/27/25 05:45 03/27/25 05:30 03/27/25 05:45
Intake and Output
03/26/25 03/27/25 03/28/25
06:59 06:59 06:59
Intake Total 493 / 493
Output Total 1100 / 1100
Balance -607 / -607
SaO2 95
Nasal Cannula flow liters per 3
minute
Physical Exam
General: Comfortable
HEENT: Normocephalic
Cardiovascular: S1-S2
Respiratory: Clear and Non-Labored Respirations
GI: Soft and Non Distended
Neurology: Awake
Skin: Warm
Labs/Micro/Reports
Lab Data
03/27/25 04:20
03/27/25 04:20
Laboratory Results
03/26/25
10:33
pH 7.28 L
pCO2 45 H
pO2 66 L
HCO3 21.1
O2 Delivery Level O2
[2025-03-27] MEDS: CYMBALTA DELAYED RELEASE 60 MG PO (10:22)
[2025-03-27] MEDS: PLAVIX 75 MG PO (10:22)
[2025-03-27] MEDS: LOW STRENGTH ASPIRIN 81 MG PO (10:22)
[2025-03-27] MEDS: NICODERM TRANSDERMAL 21 MG TRANSDERM (10:23)
[2025-03-27] MEDS: HEPARIN 5000 UNITS SC ×3 (10:23→23:00)
--- NOTE | 2025-03-27 10:32 | W.PN.GI.CBS2 ---
Today's Communication / Plan
-
protonix, gi signing off
Assessment / Plan
-
69 yo F here with STEMI found to be vomiting pre-cath and post-cath some coffee ground emesis with blood streaks.
Suspect Yee Nguyen tear.
Stable Hb.
Tolerating diet.
Continue protonix bid x 1 month then daily x 1 month then stop.
GI will sign off pls call with ?s.
Patient overdue for cscope this will need to be arranged 6 months post-cath. I sent office message to put her in for recall then.
Subjective
Subjective
Date of Service: March 27, 2025
no further vomiting stable hb
Objective
Data Reviewed
Laboratory Data:
Laboratory Results
03/27/25 04:20
03/27/25 04:20
Laboratory Results
PT 13.8 Sec (11.4-14.6) 03/26/25 03:51
INR 1.03 03/26/25 03:51
Magnesium 2.1 mg/dl (1.6-2.3) 03/26/25 03:47
Total Bilirubin 0.6 mg/dl (0.2-1.3) 03/26/25 03:47
AST 17 U/L (14-36) 03/26/25 03:47
ALT 14 U/L (0-35) 03/26/25 03:47
Alkaline Phosphatase 52 U/L (38-126) 03/26/25 03:47
Lipase 161 U/L (23-300) 03/26/25 10:58
Vital Signs and I&O:
Vital Signs
Temp Pulse Resp BP Pulse Ox
98.0 F 57 22 120/58 95
03/27/25 00:08 03/27/25 05:45 03/27/25 05:45 03/27/25 05:30 03/27/25 05:45
I&O
03/26/25 03/27/25 03/28/25
06:59 06:59 06:59
Intake Total 493 / 493
Output Total 1100 / 1100
Balance -607 / -607
Physical Exam
Physical Exam
GI: Non Distended and Non Tender
--- NOTE | 2025-03-27 11:30 | W.PN.NEPH.PH ---
Today's Communication / Plan
-
monitor labs, no lasix
Assessment/Plan
-
IMP:
Acute hypoxic respiratory failure.
Shock, suspect cardiogenic
Acute STEMI, inferior wall s/p RCA PCI 03/26
Recurrent nausea vomiting with concern for upper GI bleed
CKD4-baseline cr 2.2
IDDM
Hypertension
Hyperlipidemia
History of smoking.
h/o GERD
COPD
Spinal stenosis
Fibromyalgia
Plan:
A/w STEMI s/p RCA PCI
cr is slightly up but non oliguric, monitor labs closely with contrast exposure 03/26
BP stable off pressors
wt down and off O2, no lasix today
h/h stable off PPI gtt
med list is not accurate -needs to be updated
hold ARB and avoid nephrotoxins
follow labs
d/w pt
-
-
Date of Service: March 27, 2025
CC / HPI / ROS
-
Chief Complaint:
CKD
History of Present Illness:
cr slightly up at 2.5
non oliguric with out willis
BP stable off pressors
hb normal, no further vomiting
Review of Systems:
no cp or sob
no n/v
Labs
-
Labs:
WBC 12.0 10^3/uL (4.8-10.8) H 03/27/25 04:20
RBC 4.60 10^6/uL (4.20-5.40) 03/27/25 04:20
Hgb 14.0 g/dL (12.0-16.0) 03/27/25 04:20
Hct 42.3 % (37.0-47.0) 03/27/25 04:20
Plt Count 134 10^3/uL (130-400) 03/27/25 04:20
Sodium 140 mmol/L (135-145) 03/27/25 04:20
Potassium 4.7 mmol/L (3.5-5.1) 03/27/25 04:20
Chloride 112 mmol/L (98-107) H 03/27/25 04:20
Carbon Dioxide 22 mmol/L (22-30) 03/27/25 04:20
BUN 50 mg/dl (7-17) H 03/27/25 04:20
Creatinine 2.5 mg/dL (0.6-1.0) H 03/27/25 04:20
eGFR 20.06 03/27/25 04:20
Glucose 111 mg/dl (70-99) H 03/27/25 04:20
Calcium 9.1 mg/dl (8.4-10.2) 03/27/25 04:20
Sxc-K-Finbalyrrpr Pept 555 pg/ml 03/26/25 03:47
Albumin 4.0 g/dl (3.5-5.0) 03/26/25 03:47
Physical Exam
-
Vital Signs:
Vital Signs
Temp Pulse Resp BP Pulse Ox
98.0 F 57 22 120/58 95
03/27/25 00:08 03/27/25 05:45 03/27/25 05:45 03/27/25 05:30 03/27/25 05:45
Cardiovascular:: Regular rate and rhythm
Respiratory:: Bilateral: CTA
Lung Excursion:: Normal
Abdomen:: Nontender and Soft
Extremity Edema:: None: Bilateral:
Willis Catheter: No
[2025-03-27 12:09] LABS: Glycohemoglobin (HgbA1c) 6.6 % (4.0-5.6)
[2025-03-27] MEDS: PROTONIX 40 MG PO ×2 (14:16→19:57)
[2025-03-27 16:32] LABS: Glucose - Point of Care 172 mg/dl (70-99)
[2025-03-27] MEDS: CRESTOR 40 MG PO (17:11)
[2025-03-27] MEDS: NOVOLOG FLEXPEN-LOW RESISTANCE 1 UNITS SC (17:11)
--- NOTE | 2025-03-27 17:39 | PTCARENOTE ---
Received pt from CVICU, VSS, monitor showing NSR. Right groin cath site with dressing c/d/i, slight ecchymosis noted above puncture wound, no bleeding, area soft. +doppler pulses. Denies pain, n/v. Oriented to room, call valentine in reach.
--- NOTE | 2025-03-27 21:21 | PTCARENOTE ---
Patient received at change of shift sitting at the edge of the bed. Right groin site with gauze and tape C/D/I, surrounding area ecchymotic but soft to palpation, pedal pulse obtainable with doppler. Sinus rhythm on telemetry. The patient denies
chest pain or pressure, reports feeling tired but otherwise okay. Oxygen saturation 93-95% on room air. Call valentine within reach. Plan of care discussed. Care ongoing.
[2025-03-27 22:04] LABS: Glucose - Point of Care 221 mg/dl (70-99)
[2025-03-28 03:21] VITALS: BP 127/50
[2025-03-28 04:01] LABS: Blood Urea Nitrogen 46 mg/dl (7-17); Calcium 8.8 mg/dl (8.4-10.2); Carbon Dioxide 25 mmol/L (22-30); Chloride 111 mmol/L (98-107); Estimated Creatinine Clearance 25 ml/min; Glucose 138 mg/dl (70-99); Potassium 4.4 mmol/L (3.5-5.1); Sodium 138 mmol/L (135-145); eGFR 22.17
[2025-03-28 08:03] LABS: ACT-LR - POC > 397 Seconds (116-155)
[2025-03-28 08:25] VITALS: BP 102/55
[2025-03-28 08:39] LABS: Glucose - Point of Care 161 mg/dl (70-99)
--- NOTE | 2025-03-28 08:41 | W.PN.CD ---
Today's Communication / Plan
-
ambulate
echo
discharge pending above
Impression / Plan
-
69-year-old woman with IDDM, h/op carotid stenting, HTN, hyperlipidemia, tobacco abuse, CKD with inferior STEMI complicated by symptomatic bradycardia and sinus arrest s/p PCI to RCA.
STEMI
- c/b bradycardic arrest and cardiogenic shock, now recovered
- trop reached 50s and not trended to peak
- echo pending today; GDMT tbd, normal EF on v-gram during cath
- loaded with ASA/Plavix, cont. DAPT 1 year
- high intensity statin, eventual goal LDL<55
- tobacco cessation
Afib
- transient in the pedro-procedure setting
- amio given but not continued
- will not anticoagulate if no recurrent episodes
CKD
- Cr stable at baseline 48 hours post dye load
- will cont. to follow as outpatient
Physical Exam
Vital Signs/Labs
Vital Signs
Temp Pulse Resp BP Pulse Ox
37.0 C 68 20 127/50 97
03/28/25 03:23 03/28/25 06:00 03/28/25 03:23 03/28/25 03:21 03/28/25 03:23
03/27/25 03/28/25 03/29/25
06:59 06:59 06:59
Actual Weight 89.9 kg
03/27/25 04:20
03/28/25 03:26
PT 13.8 Sec (11.4-14.6) 03/26/25 03:51
INR 1.03 03/26/25 03:51
Magnesium 2.1 mg/dl (1.6-2.3) 03/26/25 03:47
03/26/25
03:47
Ipq-H-Quvxgwevdrz Pept 555
LAB Results
03/26/25 03/26/25 03/26/25
03:47 06:10 10:58
Troponin I 0.023 1.870 H* D 23.500 H* D
03/26/25
18:39
Troponin I 57.400 H* D
Physical Exam
Constitutional: Comfortable
Cardiovascular: Rhythm & rate is regular
Respiratory: Respiratory effort normal
Neuro/Psych: AO x 3
Data Reviewed
-
Date of Service: March 28, 2025
Medical Decision Making: Reviewed Test Results
EKG: Tracing Personally Visualized and interpreted
Echo: Tracing Personally Visualized and interpreted
Labs: Labs Reviewed by me
--- NOTE | 2025-03-28 09:10 | PTCARENOTE ---
Assumed care of pt from prev nsg shift; Pt AAOX3 w/no c/o CP or SOB. Pt does c/o not sleeping & is anxious for D/C. Pt's VSS w/HR in the 60's & BP 102/55 this AM. Pt w/R groin access site w/dressing C/D/I w/ scattered purple/red ecchymosis but no
signs or symptoms of bleeding or hematoma. Pt is SR on telemetry monitoring. Pt w/call valentine within reach & plan of care ongoing.
[2025-03-28] MEDS: CYMBALTA DELAYED RELEASE 60 MG PO (10:00)
[2025-03-28] MEDS: PROTONIX 40 MG PO (10:00)
[2025-03-28] MEDS: NOVOLOG FLEXPEN-LOW RESISTANCE 1 UNITS SC (10:00)
[2025-03-28] MEDS: PLAVIX 75 MG PO (10:00)
[2025-03-28] MEDS: HEPARIN 5000 UNITS SC (10:00)
[2025-03-28] MEDS: LOW STRENGTH ASPIRIN 81 MG PO (10:00)
--- NOTE | 2025-03-28 10:00 | CARDSERVLU ---
Echocardiogram with Lumason completed after protocol screening completed. Allergies verified.
Patent IV site: _Right arm 18 G PC site clear____
IV site flushed with 0.9% NaCl pre and post administration.
Diluted bolus method utilized to enhance visualization of ventricular waller.
Total volume given: __3__ mL
Patient tolerated all procedures well without complications.
[2025-03-28] MEDS: NICODERM TRANSDERMAL 21 MG TRANSDERM (10:01)
--- NOTE | 2025-03-28 10:40 | W.PN.NEPH.PH ---
Today's Communication / Plan
-
follow BMP
Assessment/Plan
-
IMP:
Acute hypoxic respiratory failure.
Shock, suspect cardiogenic
Acute STEMI, inferior wall s/p RCA PCI 03/26
Recurrent nausea vomiting with concern for upper GI bleed
CKD4-baseline cr 2.2
IDDM
Hypertension
Hyperlipidemia
History of smoking.
h/o GERD
COPD
Spinal stenosis
Fibromyalgia
Plan:
follow BMP
hold ARB given low BP
follow labs
dc planning
has OV with me 04/13
-
-
Date of Service: March 28, 2025
CC / HPI / ROS
-
Chief Complaint:
CKD
History of Present Illness:
Cr down to 2.3
non oliguric with out willis
BP stable off pressors
hgb normal, no further vomiting
Review of Systems:
no cp or sob
no n/v
Labs
-
Labs:
WBC 12.0 10^3/uL (4.8-10.8) H 03/27/25 04:20
RBC 4.60 10^6/uL (4.20-5.40) 03/27/25 04:20
Hgb 14.0 g/dL (12.0-16.0) 03/27/25 04:20
Hct 42.3 % (37.0-47.0) 03/27/25 04:20
Plt Count 134 10^3/uL (130-400) 03/27/25 04:20
Sodium 138 mmol/L (135-145) 03/28/25 03:26
Potassium 4.4 mmol/L (3.5-5.1) 03/28/25 03:26
Chloride 111 mmol/L (98-107) H 03/28/25 03:26
Carbon Dioxide 25 mmol/L (22-30) 03/28/25 03:26
BUN 46 mg/dl (7-17) H 03/28/25 03:26
Creatinine 2.3 mg/dL (0.6-1.0) H 03/28/25 03:26
eGFR 22.17 03/28/25 03:26
Glucose 138 mg/dl (70-99) H 03/28/25 03:26
Calcium 8.8 mg/dl (8.4-10.2) 03/28/25 03:26
Aru-L-Pyduqzzqlqs Pept 555 pg/ml 03/26/25 03:47
Albumin 4.0 g/dl (3.5-5.0) 03/26/25 03:47
Physical Exam
-
Vital Signs:
Vital Signs
Temp Pulse Resp BP Pulse Ox
98.6 F 68 20 102/55 97
03/28/25 03:23 03/28/25 08:25 03/28/25 03:23 03/28/25 08:25 03/28/25 03:23
Cardiovascular:: Regular rate and rhythm
Respiratory:: Bilateral: CTA
Lung Excursion:: Normal
Abdomen:: Nontender and Soft
Bowel Sounds:: Normal
Extremity Edema:: None: Bilateral:
[2025-03-28 10:53] LABS: Troponin I 13.800 ng/ml
[2025-03-28 13:23] LABS: Glucose - Point of Care 265 mg/dl (70-99)
[2025-03-28] MEDS: NOVOLOG FLEXPEN-LOW RESISTANCE 3 UNITS SC (13:23)
--- NOTE | 2025-03-28 15:10 | W.PN.UPDATE ---
Update Note
Progress Note Update
Addendum:
Acute Inferior STEMI, s/p mid RCA angioplasty/KARINA (03/26/25), complicated by cardiogenic shock requiring pressor support with levophed and norepinephrine, as well as bradycardia/JR requiring temp venous pacer for a short time.
Pt seen by Dr. Amaya this morning.
Echo today with nml Bi-VSF, EF 70%, no sig valvular disease, small loculated pericardial effusion posterior to LV, not seen in all views. Will have repeat outpt echo in 6-8 weeks, to be arranged per cardiology.
Repeat troponin today down to 13.8. (peak 57.4)
Tele stable NSR, no vt/arrhythmia.
RFA cath site KENAN, no ht/bleeding.
BP remains on the lower side, will continue metoprolol at decreased dose 12.5mg/daily and resume amlodipine 5mg/daily. Will discontinue candesartan and doxazosin at this time.
To remain on DAPT w/asa, clopidogrel.
Pravastatin discontinued in favor of rosuvastatin 40mg/daily.
cardiac rehab consulted.
Follow at [facility] in 2 weeks as scheduled.
Home today.
GI consulted for N/V coffee ground/bloody emesis. Possible silvana bhatt tear. She will continue protonix 40mg BID for 1 month then drop to 40mg/daily. Will continue famotidine 20mg/daily as before. Pt will schedule outpt endo/colonoscopy in 6
months per GI.
Nehprology consulted for CKD4 (baseline creat 2-3 with GFR 22). Stable post dye load. Will get lab work in 1 week with BMP, CBC- results to Dr. Jo and Dr. Amaya.
DM- HgbA1C 6.6%, improved per patient, will continue insulins. She has been off metformin for a while now, per pt.
Chronic tobacco abuse, 2ppd for many many years. Discussed cessation and she is agreeable to try. Nicoderm patches started with a couple refills, will have to followup with PCP for further management.
[2025-03-28 15:15] VITALS: BP 119/75
--- NOTE | 2025-03-28 15:33 | W.DS.TRANS ---
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
-
Discharge Instructions:
Discharge Diagnosis/Procedures STEMI, s/p angioplasty and stent to Right
Coronary artery
Diet Low Cholesterol,Diabetic, Carb Controlled
Driving Restrictions No driving for 24 hours
Blood Work BMP, CBC in 1 week- results to Dr. Monique Dr.
Deysi
Others Tests Echocardiogram in 6-8 weeks- will be arranged
through cardiology office
Other Services Cardiac Rehab
Instructions:
Stand-Alone Forms: DC Instructions- Cath/EP Lab
Changes to Home Medications: Yes
Discharge Medications:
DC Medications w/original date entered in [employer]
amlodipine 5 mg tablet (Norvasc) 5 mg PO DAILY Blood Pressure 10/08/19
albuterol sulfate 90 mcg/actuation aerosol inhaler 2 puff inhalation Q4HPRN PRN wheezing/dyspnea 03/28/25
aspirin 81 mg tablet 81 mg PO DAILY 03/28/25
clopidogrel 75 mg tablet 75 mg PO DAILY #30 tabs 03/28/25
duloxetine 60 mg capsule,delayed release 60 mg PO DAILY 03/28/25
famotidine 20 mg tablet (Pepcid) 20 mg PO DAILY 03/28/25
insulin aspart U-100 100 unit/mL subcutaneous cartridge (Novolog PenFill U-100 Insulin aspart) 28 unit SC DAILY 03/28/25
insulin glargine 100 unit/mL (3 mL) subcutaneous pen (Basaglar KwikPen U-100 Insulin) 50 unit SC DAILY 03/28/25
metoprolol succinate 25 mg tablet,extended release 24 hr 25 mg PO DAILY #30 tabs 03/28/25
nicotine 21 mg/24 hr daily transdermal patch 21 mg transdermal DAILY #28 ea 03/28/25
pantoprazole 40 mg tablet,delayed release 40 mg PO BID #60 tabs 03/28/25
rosuvastatin 20 mg tablet 40 mg (2 x 20 mg) PO QPM #30 tabs 03/28/25
Home Medication Changes
NEW: clopidogrel, pantoprazole, nicoderm, rosuvastatin
DOSE DECREASE: metoprolol succinate
STOP: pravastatin, doxazosin, candesartan
Pending Results: No
[2025-03-28] MEDS: HEPARIN SC (15:51)
--- NOTE | 2025-03-28 16:20 | PTCARENOTE ---
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 Pt transported home by friend. Pt left w/personal belongings incl cell phone.
== END 2025-03-28 16:25 | disposition home or self-care (01) | DRG 321 ==
LOC: IVU 05:51
PROVIDERS: Internal Medicine Interventional Cardiology; Nurse Practitioner; Nurse Practitioner Family; ADMITTING PHYSICIAN Internal Medicine Cardiovascular Disease; CONSULT PHYSICIAN Internal Medicine; CONSULT PHYSICIAN Internal Medicine Gastroenterology; EMERGENCY PHYSICIAN Emergency Medicine
PROC: B2111ZZ Fluoroscopy of Multiple Coronary Arteries using Low Osmolar Contrast (ICD-10-PCS; 2025-03-26)
PROC: 027034Z Dilation of Coronary Artery, One Artery with Drug-eluting Intraluminal Device, Percutaneous Approach (ICD-10-PCS; 2025-03-26)
PROC: B2151ZZ Fluoroscopy of Left Heart using Low Osmolar Contrast (ICD-10-PCS; 2025-03-26)
PROC: 4A023N6 Measurement of Cardiac Sampling and Pressure, Right Heart, Percutaneous Approach (ICD-10-PCS; 2025-03-26)
DX: I21.19 ST elevation (STEMI) myocardial infarction involving other coronary artery of inferior wall (principal); J96.01 Acute respiratory failure with hypoxia; R57.0 Cardiogenic shock; J81.1 Chronic pulmonary edema; K92.0 Hematemesis; N18.4 Chronic kidney disease, stage 4 (severe); E78.00 Pure hypercholesterolemia, unspecified; I12.9 Hypertensive chronic kidney disease with stage 1 through stage 4 chronic kidney disease, or unspecified chronic kidney disease; F17.210 Nicotine dependence, cigarettes, uncomplicated; E11.22 Type 2 diabetes mellitus with diabetic chronic kidney disease; E11.51 Type 2 diabetes mellitus with diabetic peripheral angiopathy without gangrene; I25.10 Atherosclerotic heart disease of native coronary artery without angina pectoris; I48.91 Unspecified atrial fibrillation; K21.9 Gastro-esophageal reflux disease without esophagitis; M79.7 Fibromyalgia; M48.00 Spinal stenosis, site unspecified; J43.9 Emphysema, unspecified; Z79.4 Long term (current) use of insulin; Z79.82 Long term (current) use of aspirin; Z79.84 Long term (current) use of oral hypoglycemic drugs; Z79.899 Other long term (current) drug therapy; Z82.49 Family history of ischemic heart disease and other diseases of the circulatory system; Z88.0 Allergy status to penicillin; Z88.1 Allergy status to other antibiotic agents; Z88.8 Allergy status to other drugs, medicaments and biological substances; Z95.5 Presence of coronary angioplasty implant and graft
CPT/HCPCS: 33210; 36600; 71045; 80048; 80053; 82805; 82962; 83036; 83605; 83690; 83735; 83880; 84484; 85025; 85027; 85347; 85610; 93005; 93306; 93460; 96365; 99291; 99406; C1725; C1769; C1874; C1887; C1894; C9606; Q9950; Q9967

== ENCOUNTER → 2025-05-17 14:57 | Outpatient (REF) | payer OTHER, SELFPAY | LOC: RCS 14:57 | PROVIDERS: ATTENDING PHYSICIAN Nurse Practitioner; FAMILY PHYSICIAN Internal Medicine | DX: I31.39 Other pericardial effusion (noninflammatory) (principal) | CPT/HCPCS: 93306 ==